=== PATIENT | male | born 1995 | race Caucasian/White ===

== ENCOUNTER 2019-07-19 17:07 | Emergency (ER) | payer MEDICAID ==
[~2019-07-19] VITALS: Ht 167.6 cm; Wt 82.0 kg
[2019-07-19] MEDS ORDERED: IBUPROFEN 600MG TABLET PO ONE (17:30)
[2019-07-19 18:36] VITALS: BP 152/94
== END 2019-07-19 18:38 | disposition home or self-care (01) ==
LOC: ER 17:07
DX: S42.492A Other displaced fracture of lower end of left humerus, initial encounter for closed fracture (principal); Y04.0XXA Assault by unarmed brawl or fight, initial encounter; Y93.89 Activity, other specified; Y92.098 Other place in other non-institutional residence as the place of occurrence of the external cause
CPT/HCPCS: 73080; 99283

== ENCOUNTER 2020-12-12 09:51 | Emergency (ER) | payer MEDICAID ==
[~2020-12-12] VITALS: Ht 175.3 cm; Wt 112.0 kg
[2020-12-12 12:30] VITALS: BP 139/76
== END 2020-12-12 12:41 | disposition home or self-care (01) ==
LOC: ER 09:51
DX: R45.4 Irritability and anger (principal); I49.9 Cardiac arrhythmia, unspecified; Z98.890 Other specified postprocedural states
CPT/HCPCS: 93005; 99283